=== PATIENT | male | born 1960 | race Caucasian/White ===

== ENCOUNTER → 2017-07-11 | Outpatient (CLI) | payer BC ==
[~2017-07-11] MED LIST: ALLOPURINOL 30300 M1 PO; ATENOLOL 100MG100 MG PO; BACTROBAN15 GM TOP; CARDURA XL4 MG PO; CARDURA4 MG PO; CIPRO500 MG PO; COLACE 100 MG100 MG PO; DULOXETINE HCL30 MG PO; ELMIRON 100 MG100 M1 PO; FLOMAX; GLUCOPHAGE500 MG PO; HUMALOG100 UNIT/1 SUBQ; HUMALOG100 UNIT/2 SQ; HYDROCODON-ACE1 EACH; HYOSCYAMIN125 MCG/5 PO; INDOMETHACIN 5050 M1; LANTUS SUBQ; LISINOPRIL-HCT1 EAC2 PO; MAXIPIME2 GM IV; METAMUCIL1 EAC1 PO; MOBIC15 MG; MOBIC15 MG PO; NORCO 5-325 TA1 EACH PO; PERCOCET 5-3251 EACH PO; PERCOCET PO; PREDNISONE 20 M20 MG PO; PYRIDIUM200 M1 PO; TOUJEO SOL300 UNIT/1 SQ; TOUJEO SOL300 UNIT/1 SUBQ; TYLENOL EXTRA500 MG PO
== END ==
LOC: M.WC 01:30
DX: N30.41 Irradiation cystitis with hematuria (principal); L59.9 Disorder of the skin and subcutaneous tissue related to radiation, unspecified; I10 Essential (primary) hypertension; E11.9 Type 2 diabetes mellitus without complications; M10.9 Gout, unspecified; G47.30 Sleep apnea, unspecified; M06.9 Rheumatoid arthritis, unspecified; F41.1 Generalized anxiety disorder; F33.1 Major depressive disorder, recurrent, moderate; Z79.4 Long term (current) use of insulin; Z87.891 Personal history of nicotine dependence; Z72.89 Other problems related to lifestyle; Z68.32 Body mass index [BMI] 32.0-32.9, adult; Z85.46 Personal history of malignant neoplasm of prostate

== ENCOUNTER → 2017-07-30 | Outpatient (CLI) | payer BC | LOC: M.WC 01:34 | DX: N30.41 Irradiation cystitis with hematuria (principal); L59.9 Disorder of the skin and subcutaneous tissue related to radiation, unspecified; E11.9 Type 2 diabetes mellitus without complications; I10 Essential (primary) hypertension; M10.9 Gout, unspecified; G47.30 Sleep apnea, unspecified; M06.9 Rheumatoid arthritis, unspecified; F33.1 Major depressive disorder, recurrent, moderate; F41.1 Generalized anxiety disorder; Z87.891 Personal history of nicotine dependence; Z68.32 Body mass index [BMI] 32.0-32.9, adult; Z85.46 Personal history of malignant neoplasm of prostate; Z72.89 Other problems related to lifestyle ==

== ENCOUNTER → 2017-07-31 | Outpatient (CLI) | payer BC | LOC: M.WC 11:00 | DX: L59.9 Disorder of the skin and subcutaneous tissue related to radiation, unspecified (principal); N30.41 Irradiation cystitis with hematuria; E11.65 Type 2 diabetes mellitus with hyperglycemia; F33.1 Major depressive disorder, recurrent, moderate; F41.1 Generalized anxiety disorder; I10 Essential (primary) hypertension; M06.9 Rheumatoid arthritis, unspecified; Z85.46 Personal history of malignant neoplasm of prostate; Z87.891 Personal history of nicotine dependence; Z68.32 Body mass index [BMI] 32.0-32.9, adult; Z72.89 Other problems related to lifestyle ==

== ENCOUNTER 2018-05-23 01:46 | Inpatient (IN) | payer BC ==
[~2018-05-23] VITALS: Ht 182.9 cm; Wt 117.9 kg
[~2018-05-23 01:46] MED LIST changes: -BACTROBAN15 GM TOP; -CARDURA XL4 MG PO; -COLACE 100 MG100 MG PO; -ELMIRON 100 MG100 M1 PO; -HUMALOG100 UNIT/1 SUBQ; -LANTUS SUBQ; -MAXIPIME2 GM IV; -METAMUCIL1 EAC1 PO; -MOBIC15 MG PO; -PERCOCET PO; -PREDNISONE 20 M20 MG PO; -TYLENOL EXTRA500 MG PO
[2018-05-23 01:51] VITALS: BP 191/89
[2018-05-23] MEDS ORDERED: ELMIRON 100 MG100 M1 PO (01:56)
[2018-05-23] MEDS ORDERED: NORCO 5-325 TA1 EACH PO (01:56)
[2018-05-23] MEDS ORDERED: MOBIC15 MG PO (01:57)
[2018-05-23] MEDS ORDERED: CARDURA XL4 MG PO (01:58)
[2018-05-23] MEDS ORDERED: PREDNISONE 20 M20 MG PO (01:58)
[2018-05-23 02:30] LABS: CALCIUM 8.9 mg/dL (8.5-10.1); CREATININE 0.9 mg/dL (0.6-1.3); POTASSIUM 3.9 mmol/L (3.5-5.1)
[2018-05-23 02:32] LABS: INR 1.1
[2018-05-23 02:35] LABS: ALBUMIN 3.7 g/dL (3.4-5.0); TOTAL BILIRUBIN 1.3 mg/dL (<0.1-1.0); TOTAL PROTEIN 8.1 g/dL (6.4-8.2)
[2018-05-23 02:46] LABS: URINE BILIRUBIN NEGATIVE (Negative); URINE BLOOD 1+ (Negative); URINE CLARITY CLEAR; URINE COLOR DARK YELLOW; URINE GLUCOSE-RANDOM 1+ (Negative); URINE KETONES 1+ (Negative); URINE LEUKOCYTES-REFLEX NEGATIVE (Negative); URINE NITRITE-REFLEX NEGATIVE (Negative); URINE PROTEIN 2+ (Negative); URINE UROBILINOGEN 0.2 E.U./dl (0.2-1.0)
[2018-05-23 03:02] LABS: BACTERIA-REFLEX >30 Many /HPF (None Seen); CASTS None Seen /LPF (None Seen); CRYSTALS None Seen /LPF (None Seen); MUCUS 4-6 Moderate strn/LPF (None Seen); SQUAMOUS 0-3 Few /LPF (0-3); URINE RBC 3-10 Few /HPF (0-2); URINE WBC-REFLEX 0-5 Rare /HPF (0-5)
[2018-05-23 03:18] LABS: HEMATOCRIT 37.1 % (42.0-52.0); HEMOGLOBIN 12.6 gm/dL (14.0-18.0); MCH 30.8 pg (26.0-34.0); MCV 90.7 fL (80.0-100.0); MPV 7.9 fl. (7.2-11.1); NUCLEATED RBCS 0 /100WBC; PLATELET COUNT* 168 thou/uL (150-400); RDW-CV 14.1 % (10.5-14.5); WBC 10.4 thou/uL (4.0-11.0)
[2018-05-23 04:33] LABS: ESR (SEDRATE) 61 mm/hr (0-20)
[2018-05-23 04:56] VITALS: BP 171/86
[2018-05-23 05:54] LABS: ABSOLUTE LYMPHOCYTES 0.4 thou/uL (0.8-5.3); ABSOLUTE MONOCYTES 0.8 thou/uL (0.0-1.2); ABSOLUTE NEUTROPHILS 9.2 thou/uL (1.6-8.1); ANISOCYTOSIS 1+; PLATELET ESTIMATE ADEQUATE; POIKILOCYTOSIS 1+
--- NOTE | 2018-05-23 06:00 | NUR ---
PATIENT ADMITTED TO ROOM 112 FROM ER AT APPROXIMATELY 0500. VSS ON RA. PATIENT ORIENTED TO ROOM AND POLICIES. ADMISSION ROUTINES IN PROGRESS. ASSESSMENT CHARTED. FALL EDUCATION GIVEN AND FALL AGREEMENT SIGNED. PATIENT VERBALIZED UNDERSTANDING. IV IN RIGHT AC-NS @ 130ML/HR. PATIENT INSTRUCTED TO USE CALL LIGHT WHEN NEEDING ASSISTANCE. HOURLY ROUNDS TO BE MADE. WILL CONTINUE WITH PLAN OF CARE AND NURISNG TO MONITOR.
[2018-05-23 07:50] VITALS: BP 182/94
[2018-05-23 16:00] VITALS: BP 156/81
--- NOTE | 2018-05-23 18:16 | NUR ---
PT ALERT AND ORIENTED X 4. PT NPO. DENIES NAUSEA. RECEIVED IV MORPHINE FOR PAIN CONTROL. PT BEDREST. USES URINAL. IVF INFUSING @ 130 MLS/HR. USES A CPAP FROM HOME. LEFT HIP ASPIRATION COMPLETED. HOURLY ROUNDS MAINTAINED. WILL USE CALL LIGHT FOR ASSISTANCE. CALL LIGHT WITHIN REACH. NURSNG TO CONTINUE TO MONITOR.
[2018-05-23 19:45] VITALS: BP 161/84
[2018-05-24 00:45] VITALS: BP 149/86
[2018-05-24 04:30] VITALS: BP 180/93
[2018-05-24 06:10] VITALS: BP 169/91
--- NOTE | 2018-05-24 07:34 | NUR ---
REMAINS ON BEDREST. STILL HAVING ALOT OF PAIN IN LEFT HIP. IV PAIN MEDICATION GIVEN AND HELPFUL. HAD ELEVATED TEMPATURE 101.6 AT BEGINNING OF SHIFT AND DR NOTIFIED. PO TYLENOL ORDERED AND HELPFUL WITH TEMPATURE. V/S THIS AM TEMATURE 102.9 PULSE 110 AND B/OOD PRESSURE 180/93. TYLENOL AND PAIN MEDICATION GIVEN AND THEN TEMPATURE RECHECKED 1 HOUR LATER AND 103.4 PULSE 111 AND BLOOD PRESSURE 169/91. BLOOD CULTURES POSITIVE. DR CALLED AGAIN AND NOTIFIED AND HAD NO NEW ORDERS. HE SAID TO CONTINUE CURRENT ORDERS. HAS 2 IV ANTIBIODICS HE IS RECEIVING WITH NO ADVERSE REACTIONS. CALL LIGHT WITHIN REACH. WILL CONTINUE TO MONITOR.
[2018-05-24 07:55] VITALS: BP 178/88
[2018-05-24 14:44] LABS: CLARITY CLOUDY; COLOR RED; SOURCE SYNOVIAL; TOTAL VOLUME 1 ml
[2018-05-24 14:46] LABS: BF RBC 1383345 /mm3
[2018-05-24 14:48] LABS: TOTAL CELL COUNT 27960 /mm3
[2018-05-24 14:51] LABS: BF EOSINOPHILS 2 %; BF LYMPHOCYTES 7 %; BF MONOCYTES 5 %; BF POLYS 86 %
--- NOTE | 2018-05-24 15:51 | NUR ---
PT ALERT AND ORIENTED X 4. RECEIVED IV MORPHINE FOR PAIN CONTROL. DENIES NAUSEA. USES CPAP FROM HOME. TEMP @ 99.8. SCDS IN PLACE. IVF INFUSING. PT ON BEDREST FOR LEFT HIP PAIN. HOURLY ROUNDS MAINTAINED. CALL LIGHT WITHIN REACH.
--- NOTE | 2018-05-24 16:01 | NUR ---
PT LEFT UNIT BY BED @ 0915 FOR PROCEDURE AND RETURNED @ 1245. PT ALERT AND ORIENTED X 4. OXYGEN ON @ 4L/NC. BEDSIDE MONITOR IN PLACE. IVF INFUSING @ 75 ML/HR. / GUAZE WITH TRANSPARENT DRESSING- C/D/I. HEMOVAC DRAIN IN PLACE TO LEFT HIP. CLEAN CATCH UA OBTAINED. RECEIVED 1000 VANCOMYCIN WHILE OFF UNIT. PT USES URINAL. DRIBBLES URINE. PT TURNED AND REPOSITIONED TO RIGHT. CALL LIGHT WITHIN REACH.
[2018-05-24 16:32] LABS: URINE BILIRUBIN NEGATIVE (Negative); URINE BLOOD 2+ (Negative); URINE CLARITY CLEAR; URINE COLOR YELLOW; URINE GLUCOSE-RANDOM NEGATIVE (Negative); URINE LEUKOCYTES-REFLEX NEGATIVE (Negative); URINE NITRITE-REFLEX NEGATIVE (Negative); URINE PROTEIN 2+ (Negative); URINE UROBILINOGEN 0.2 E.U./dl (0.2-1.0)
[2018-05-24 16:45] LABS: URINE KETONES 3+ (Negative)
[2018-05-24 17:31] LABS: SQUAMOUS 4-10 Moderate /LPF (0-3)
[2018-05-24 17:32] LABS: CRYSTALS None Seen /LPF (None Seen); HYALINE CASTS 0-3 Few /LPF (None Seen); MUCUS None Seen strn/LPF (None Seen); URINE RBC 0-2 Rare /HPF (0-2)
[2018-05-24 17:33] LABS: BACTERIA-REFLEX None Seen /HPF (None Seen); URINE WBC-REFLEX None Seen /HPF (0-5)
--- NOTE | 2018-05-24 17:33 | NUR ---
REPORT GIVEN. PT TRANSFER TO #[id number] BY BED @ 4224.
--- NOTE | 2018-05-24 18:25 | NUR ---
PT ARRIVED TO UNIT AT 1730 VIA BED AND RN/ICING MIXER FROM [facility]. A&O X4. SLIVER HANDLER IN PLACE, SR. O2 SAT >92% ON 4L/MIN NC. ISLAND DRSG TO L HIP SMALL AMT SEROSANGUINOUS DRNG ON [facility]. HEMOVAC DRAINING SANGUINOUS FLUID, PATENT. IN AGREEMENT WITH DOCUMENTED ASSESSMENT FROM [facility] RN. MEDS PER SEP. PRN PAIN MED PER SEP. CALL LIGHT IN REACH. ABLE TO COMMUNICATE NEEDS TO STAFF.
[2018-05-24 19:00] VITALS: BP 172/97
--- NOTE | 2018-05-24 22:15 | NUR ---
PT TRACING SR ON MONITOR. O2 SATS ADEQUATE ON 4LPM. PT DENIES PAIN, N/V/D. SMALL AMOUNT OF SEROUSSANGEOUS DRAINAGE TO DRESSING ON LEFT HIP. HEMOVAC IN PLACE. IVF AND IV ABT INFUSING ORDERED. PT IS COMPLIANT WITH FALL PRECAUTIONS AND IS USING CALL LIGHT APPROPRIATELY. CLWR.
[2018-05-25 00:04] VITALS: BP 164/89
[2018-05-25 04:57] LABS: HEMATOCRIT 30.2 % (42.0-52.0)
[2018-05-25 05:14] VITALS: BP 177/95
--- NOTE | 2018-05-25 05:20 | NUR ---
PT REMAINS SR ON MONITOR. PT HAS REQUIRED PRN MORPHINE ONE TIME WHEN MOVING ON AND OFF BED POSEY THIS CAUSED TREMENDOUS PAIN. VSS. NO OTHER CONCERNS AT THIS TIME.
[2018-05-25 06:49] LABS: HEMOGLOBIN 10.4 gm/dL (14.0-18.0)
--- NOTE | 2018-05-25 08:10 | NUR ---
REC'D REPORT FROM NOC RN, ASSUMED CARE OF PT APPROX 0730. A*O X4, ABLE TO COMMUNICATE NEEDS TO STAFF. SUPERVISORY CLERK IN PLACE, SR BBB. O2 SATS > 92% ON 2L/MIN NC. PT WEARING CPAP WHILE IN BED. VSS. CALL LIGHT WITHIN REACH.
[2018-05-25 08:15] VITALS: BP 156/90
--- NOTE | 2018-05-25 10:18 | EKG ---
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: : 1960 Requested By: Delfino Albright Order Number: [id number] Ksenia MD: Eleazar Chisholm Measurements Intervals [place] Rate: 99 P: 61 SD: 177 QRS: -17 QRSD: 106 T: 41 QT: 366 QTc: 470 Interpretive Statements Sinus rhythm Inferior infarct age indeterminate possible Borderline left axis deviation Compared to ECG 05/26/2013 07:21:23 No significant changes Electronically Signed On 05-25-2018 10:17:53 STEREOPTIC PROJECTION TOPOGRAPHER by Eleazar Chisholm [email or web address] <ELECTRONICALLY SIGNED> By: Eleazar Chisholm MD, [facility] 05/25/18 1017 5 5 Eleazar Chisholm MD, [facility] /EPI
[2018-05-25 12:00] VITALS: BP 155/83
[2018-05-25 16:52] VITALS: BP 146/83
--- NOTE | 2018-05-25 18:45 | NUR ---
UNIT CUSTOMER CARE VOICE CONSULTANT REPORTED TO THIS NURSE THAT PT HAD SMALL STOOL, DARK RED IN COLOR. WHEN PROVIDED NKECHI-CARE, SMALL AMOUNT OF BRIGHT RED BLOOD ON TISSUE.
[2018-05-25 19:15] VITALS: BP 160/87
--- NOTE | 2018-05-25 22:15 | NUR ---
PT ASSESSMENT COMPLETE AT START OF SHIFT. PT REPORTED 1/10 PAIN IN LEFT HIP AT TIME OF ASSESSMENT AND THEN SHORTLY AFTER REPORTED 4/10 PAIN , PRN PAIN MEDICATION GIVEN. IVF AND IV ABT INFUSING ORDERED. ZOSYN TO BE HUNG LATE D/T AFTERNOON DOSE BEING HUNG NEARLY 3 HOURS LATE. PT IS LAERT AND ORIENTED AND ABLE TO VOICE ALL NEEDS. TRACING SR ON MONITOR. PT DENIES ANY FURTHER NEEDS AT THIS TIME. CLWR.
[2018-05-26] VITALS (7 sets, daily range): BP systolic 116–199; BP diastolic 54–103
--- NOTE | 2018-05-26 01:41 | CON ---
[address] [address] CONSULTATION Name: FREDDY BECKHAM Room: [address] IN M.R.#: [id number] Admission: 05/23/18 Attend Phys: Darrell Loyola MD Discharge: Date of : 62 Report #: [id number] THIS REPORT FOR: //name// CC: Margarita Alegria MD HISTORY OF PRESENT ILLNESS: Freddy Beckham is a 58-year-old white male admitted to the ER on the fiber optics engineer hours of 05/23/2018 with extreme pain in his hip to the point where he was immobilized. The patient has chronic hip pain and has known degenerative joint disease. However, in the first part of this week he developed progressive pain to the point where he could hardly walk. On the morning of 05/22/2018, he went to [facility] by ambulance because of pain and immobility. They did a hip x-ray and diagnosed him with arthritis and discharged him with pain medicine and steroid. The patient got a ride back home. He entered the house with a wheelchair and was barely able to get into bed. After sleeping, he got up and realized he was in too much pain to get out of bed, to reach the urinal or to take care of himself. He called another ambulance and came in the evening of 05/22/2018 to [place] [facility]. In the ER here, a CAT scan was performed, which suggested possible septic arthritis. The CT scan was interpreted as showing a small effusion in the hip as well as some gas. The patient was admitted in the fiber optics engineer hours of 05/23/2018. A CT directed hip aspiration was performed. This was described as obtaining only about 0.25 mL of specimen, but it was bloody and purulent. Dr. Albright reports that the lab said they thought they saw gram-positive cocci in the specimen. The patient developed a high fever after this. It was elected to take the patient to surgery for washout of a septic chehalis left hip. Dr. Albright describes to me that at surgery the hip did not look infected. There was minimal amount of effusion. When he opened the joint, there was really no purulence and not even much inflammation. He did do a thorough washout and closed over a drain. Of note, when the patient recovered from anesthesia, he noted his hip pain was markedly improved. The laboratory on the final report of the Gram stain documented and many white cells but no organisms sen. The patient was empirically started on vancomycin and Zosyn. Infectious Disease consultation was requested to assist with further evaluation and treatment. PAST HISTORY: Significant for arthritis. The patient had a right knee replacement in 2016, but says he has been having so much pain in his lower extremity and in his hips that he really has not had much functional improvement. Other diagnoses include diabetes and hypertension. The patient notes he checks his sugars just a couple of times a month and does not follow his diet. He has gained 30 pounds in the last 6 months, which he attributes to poor diet and inability to exercise. Other diagnoses include prostate cancer treated with radiation, which has had deleterious effects on urination. He has [address] [place] [address] CONSULTATION Name: FREDDY BECKHAM Room: [address] IN M.R.#: [id number] Admission: 05/23/18 Attend Phys: Darrell Loyola MD Discharge: Date of : 62 Report #: [id number] had some blood clot problems in the bladder. He states he has been constipated ever since the prostate radiation. He had a past diagnosis of kidney stones. He has a diagnosis of degenerative disease of the spine ALLERGIES: The patient reports no drug allergies. FAMILY HISTORY: Noncontributory. SOCIAL HISTORY: The patient is . He lives by himself. 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 He does not use alcohol currently. He was never a smoker. REVIEW OF SYSTEMS: GENERAL: The patient has not been complaining of fevers, chills or sweats. He has had weakness and malaise, which he attributes to pain. HEENT: He denies any headache, sinus congestion, sore throat or trouble swallowing. CHEST: The patient denies cough, chest pain or shortness of breath. CARDIAC: The patient denies angina, syncope or palpitation. GASTROINTESTINAL: The patient denies nausea, vomiting or abdominal pain. He does tend to get constipated and uses a laxative tea. The patient has issues with urination. He has severe pain in his left hip. He describes the pain on the lateral hip where the gun would be holstered. He does not have medial or anterior pain. He has some pain in his low back on the left side. He has some pain in the right hip, but not as severe. He is not complaining of pain in his knees. He has never had any diabetic foot wound issues. PHYSICAL EXAMINATION: GENERAL: The patient was in the reclining chair, appeared comfortable, alert, oriented, pleasant and not in any distress. VITAL SIGNS: Show that the patient had a temperature of 101.9 in the Emergency Room. It went up to 103.1 yesterday morning. He has been afebrile for the last 24 hours. SKIN: Shows no rash, lesion or exanthem. ENT: Negative. MENTAL STATUS: Normal. HEART: Sounds normal. LUNGS: Clear. ABDOMEN: Belly is obese, soft and not tender. MUSCULOSKELETAL: The joints show normal upper extremities and knees. Well-healed surgical scar in the right knee is present. In the recliner chair, it was apparent the patient had a great deal of pain on flexing his hip. He could barely draw his knee up at all before he complained of pain. He had discomfort with abduction and adduction while in the chair. The hip itself had a post-surgical dressing, which was not removed. There was moderate amount of bloody drainage in the Hemovac system[place] [address] CONSULTATION Name: FREDDY BECKHAM Room: [address] IN [facility]#: [id number] Admission: 05/23/18 Attend Phys: Darrell Loyola MD Discharge: Date of : 62 Report #: [id number] unremarkable. LABORATORY STUDIES: The white count is 10.4, hemoglobin 12.6 and platelets 168,000. Electrolytes, BUN and creatinine were normal. Glucose was 224 and then 274. Liver function tests are normal. Lactate was normal. Inflammatory markers were markedly elevated with CRP of 237. Sedimentation rate of 61. The blood cultures x 3 were drawn on . The lab reports are 1/3 blood cultures is showing growth in the anaerobic bottle. Two follow up cultures were obtained on 05/24/2018 and they are so far both negative. The arthrocentesis fluid showed 1.38 million red cells and 28,000 white cells. The final report on the Gram stain is many white cells, many red cells and no organisms, although Dr. Albright was told on the that there were gram-positive cocci. The crystal analysis was negative. In summary, my patient who presents with acute on chronic hip pain. Radiology studies suggest a small effusion, but when tapped a minimal amount of fluid was obtained. It was mostly bloody, but did have a high white count. Cultures of this so far are no growth. At surgery, the hip did not appear to be infected with no fluid and really no inflammation. One out of five blood cultures are growing a gram-negative anaerobe. The CT scan also demonstrated a 23 x 19 x 36 mm psoas abscess on the left side, which was seen incidental through the CT of the hip. At this time, the patient seemed to have evidence of infection with fever, elevated sedimentation rate and CRP. Hip fluid which was at one point described as purulent and does have 28,000 white cells, although many red cells as well. I am not sure what to make out of the 1/5 blood cultures with anaerobic gram-negative. This may be significant, but these are sometimes just contaminants. We will await the final identification to see if any of other cultures are positive. At this point, I would like to do a MRI scan of the lumbar spine to look specifically at that iliopsoas abscess and see if there is any epidural or spinal disease, which might be explaining the patient's pain. We will continue the antibiotics while we await the results of this workup. I discussed with the patient if we feel this is a septic arthritis, he will need a PICC line in 4-6 weeks of IV antibiotics and joint replacement will be deferred for 6 months or longer. If the conclusion is this is all degenerative disease without infection, Dr. Albright says the severity of the arthritis would justify a joint replacement, which probably will give the patient excellent relief from his left hip pain. However, it will be important that we rule out infection. At this point in time, this is rather confusing. I want to check a [address] [address] CONSULTATION Name: FREDDY BECKHAM Room: [address] IN ..#: [id number] Admission: 05/23/18 Attend Phys: Darrell Loyola MD Discharge: Date of : 62 Report #: [id number] hemoglobin A1c and follow the CBC as well as inflammatory markers. Dr. Alegria will assume infectious disease coverage tomorrow morning. <ELECTRONICALLY SIGNED> By: Delfino Li MD 05/26/18 0141 1341 [id number] Li MD /nt
--- NOTE | 2018-05-26 05:45 | NUR ---
PT SLEPT WELL T/O THIS SHIFT. MINIMAL C/O PAIN. IVF AND IV ABT INFUSED ORDERED. NO NEW CONCERNS,
[2018-05-26 05:48] LABS: ABSOLUTE EOSINOPHILS 0.2 thou/uL (0.0-0.7); ABSOLUTE LYMPHOCYTES 0.7 thou/uL (0.8-5.3); ABSOLUTE MONOCYTES 0.8 thou/uL (0.0-1.2); ABSOLUTE NEUTROPHILS 4.2 thou/uL (1.6-8.1); BASOPHILS 0.2 %; EOSINOPHILS 2.7 %; HEMOGLOBIN 10.1 gm/dL (14.0-18.0); LYMPHOCYTES 11.7 %; MCH 30.6 pg (26.0-34.0); MCHC 33.8 g/dL (28.0-37.0); MCV 90.5 fL (80.0-100.0); MONOCYTES 14.2 %; MPV 7.4 fl. (7.2-11.1); NUCLEATED RBCS 0 /100WBC; PLATELET COUNT* 198 thou/uL (150-400); POLYS 71.2 %; RBC 3.31 mil/uL (4.50-6.00); RDW-CV 13.6 % (10.5-14.5); WBC 5.9 thou/uL (4.0-11.0)
[2018-05-26 06:11] LABS: ALBUMIN 2.4 g/dL (3.4-5.0); CALCIUM 7.9 mg/dL (8.5-10.1); CREATININE 0.7 mg/dL (0.6-1.3); POTASSIUM 3.6 mmol/L (3.5-5.1); TOTAL BILIRUBIN 0.5 mg/dL (<0.1-1.0); TOTAL PROTEIN 5.9 g/dL (6.4-8.2)
[2018-05-26 07:41] LABS: ESR (SEDRATE) 132 mm/hr (0-20)
--- NOTE | 2018-05-26 15:26 | NUR ---
MET WITH PT TO DISCUSS HOME SITUATION/DC PLANNING. PT LIVES ALONE IN HOUSE, NORMALLY IS INDEPENDENT, DRIVES, SHOPS, ETC. STATES HE IS CONCERNED ABOUT HOW HE'LL MANAGE AT HOME AND IS CONSIDERING GOING TO SNF. PT ALSO STATED THAT HE'S THOUGHT ABOUT MOVING TO SR HOUSING OR ASSISTED LIVING FOR ABOUT 2YRS NOW BUT UNSURE HOW TO MAKE IT 'HAPPEN.' PT HAS FAMILY IN [place] BUT IS NOT CLOSE TO THEM. HE HAS A COUSIN AND AN AQUAINTANCE [place] THAT [place] BE ABLE TO ASSIST HIM AT HOME. PT VERBALIZED THAT HE IS NOT 'TRUSTING' OF PEOPLE AND THAT HE HAS HAS DIFFICULTY WITH THAT ALL HIS LIFE. HE HAS A WALKER AND CANE AND CPAP. HE HAS HAD HH WITH [facility] IN THE PAST. DISCUSSED HOME WITH HH, SNF AND INDP VS ASSISTED LIVING. AT THIS TIME, PT IS AGREEABLE TO SNF, WILL PROVIDE LIST THRU INSURANCE. PT AWARE MAY HAVE SOME COPAYS. RHETT FOLLOW AND PROVIDE ADD'L INFO TOMORROW
--- NOTE | 2018-05-26 16:58 | NUR ---
VSS, ASSUMED CARE THIS AM, ASSESSMENT PERFORMED AND CHARTED, FALL PRECAUTIONS IN PLACE AND CALL LIGHT IN REACH, PT IS A&O4, UP WITH ONE AND WALKER, PN RA BUT USES C-PAP AT HS, PT IS TRACING SR ON THE MONITOR, STATES A SHARP PAIN IN HIS LEFT HIP WHEN MOVING, PT GOAL IS TO SIT UP IN CHAIR AND WORK WITH PT/OT, WILL FOLLOW WITH PLAN OF CAR AND HOURLY ROUNDS COMPLETED,
[2018-05-26 23:06] LABS: GLYCOHEMOGLOBIN (HGB A1C) 9.2 % (4.8-5.6)
[2018-05-27] VITALS (7 sets, daily range): BP systolic 128–186; BP diastolic 63–96
--- NOTE | 2018-05-27 01:41 | NUR ---
INITIAL ASSESSMENT COMPLETE. DRESSING TO LEFT HIP CHANGE, INCISION WELL APPROXIMATED, NO NEW DRAINAGE NOTED. PT UP TO BATHROOM WITH SBA AND WALKER. PT HAD A LARGE BM WITH SOME BLOOD NOTED. PT REPORTS [id number]. PT REPORTED 5/10 PAIN AT ASSESSMENT, PRN PERCOCET GIVEN WITH GOOD RESULTS. PT TOLERATED DRESSING CHANGE WELL. PT TRACING SR ON MONITOR. PT WAS NOTED TO HAVE ELEVATED B/P , NEW ORDERS RECEIVED FOR LISINOPRIL. PT DENIES ANY FURTHER NEEDS AT THIS TIME. CLWR.
--- NOTE | 2018-05-27 06:06 | NUR ---
PT HAD LOW GRADE FEVER T/O THE NIGHT. PT HAS ALSO HAD INCREASED B/P. SLEPT OFF AND ON T/O THIS SHIFT. LARGE BM NOTED.
[2018-05-27 06:11] LABS: CALCIUM 8.5 mg/dL (8.5-10.1); CREATININE 0.8 mg/dL (0.6-1.3); MAGNESIUM 1.7 mg/dL (1.8-2.4); POTASSIUM 3.2 mmol/L (3.5-5.1)
--- NOTE | 2018-05-27 12:00 | NUR ---
CONTINUE TO FOLLOW, MET WITH PT TO FURTHER DISCUSS DC PLAN AND SNF. GAVE LIST OF FACILITIES IN INSURANCE NETWORK. CHOSE EITHER [facility] OR [facility]. CALLED AND FAXED REFERRAL TO [facility]. PER DR GARCÍA, PT WILL NEED IV ANTIBX AT DC. ALSO GAVE INFO ON [facility]DP AND ASSISTED LIVING AND PRIVATE DUTY INFO. AWAIT CALL BACK FROM [facility].
--- NOTE | 2018-05-27 15:05 | NUR ---
VSS, ASSUMED CARE THIS AM, ASSESSMENT PERFORMED AND CHARTED, FALL PRECAUTIONS IN PLACE AND CALL LIGHT IN REACH, PT IS A&O4 UP WITH STAND BY AND WALKER, PT STATES PAIN IN HIS LEFT HIP. HIS GOAL IS TO WORK WITH PT/OT AND WALK IN ROOM, PT IS TRACING SR ON THE MONITOR, WILL FOLLOW WITH PLAN OF CARE AND HOURLY ROUNDS,
[2018-05-28] VITALS (7 sets, daily range): BP systolic 155–187; BP diastolic 80–100
--- NOTE | 2018-05-28 04:46 | NUR ---
PT. IS PROGRESSING TOWARDS GOALS. BP HIGH AT 0400 CHECK, PT. EXPRESSED HE WAS IN PAIN, PAIN MEDS GIVEN, WILL RECHECK BP. CPAP WORN THROUGHOUT THE EVENING. IVF REMAIN INFUSING. URINAL TO VOID, CALL LIGHT IN REACH, WILL CONTINUE TO MONITOR.
--- NOTE | 2018-05-28 04:59 | NUR ---
HOURLY ROUNDING COMPLETED THROUGHOUT SHIFT, REMAINS SINUS RHYTHM/TACHYCARDIC AT TIMES ON MONITOR
--- NOTE | 2018-05-28 13:44 | NUR ---
PER [facility], THEY ARE FULL AND CANNOT ACCEPT PT. HAD PREVIOUSLY DISCUSSED [facility]. CALLED AND FAXED REFERRAL TO [facility]. THEY CAN ACCEPT PT BUT HAVE TO GET AUTH. PT UPDATED
--- NOTE | 2018-05-28 18:38 | NUR ---
ASSUMED PT CARE AT 0700 PT IS ALERT AND ORIENTED X 4 PT C/O PAIN GAVE PAIN MEDS PT STATES THEY HELP DO NOT COMPLETELY RELIEVE PAIN, PT DENIES SOA, PT IS UP WITH ASSIST X 1 WITH WALKER PT IS STIFF AND HAS DIFFICULTY WITH AMBULATION, PT IS SR ON THE MONITOR PHYSICIAN MADE PT MEDICAL SURGICAL STATUS, PT MAY DISCHARGE TOMORROW TO [facility], TALKED WITH INFECTIOUS DISEASE WHO ORDERED PICC LINE PLACEMENT PT WILL DISCHARGE WITH IV ANTIBIOTICS PICC LINE IS APPROPRIATE NOTIFIED INFUSION NURSE WHO WILL PLAVE PICC LINE TOMORROW AM PT IS PROGRESSING TOWARDS GOALS, WILL CONTINUE TO MONTIOR
--- NOTE | 2018-05-28 22:00 | NUR ---
PT TRANSFERRED TO ROOM 307 PER CART ACCOMPANIED BY NURSING STAFF AND BELONGINGS. ORIENTED TO ROOM AND CALL LITE. WILL CONTINUE TO MONITOR AND PROVIDE CARES NEEDED, CALL LITE IN EASY REACH. BED ALARM ON FOR SAFETY AT THIS TIME.
[2018-05-29 03:53] LABS: HEMATOCRIT 28.6 % (42.0-52.0); MCH 30.7 pg (26.0-34.0); MCHC 34.7 g/dL (28.0-37.0); MCV 88.4 fL (80.0-100.0); RBC 3.24 mil/uL (4.50-6.00); RDW-CV 13.8 % (10.5-14.5)
[2018-05-29 04:16] LABS: CALCIUM 8.3 mg/dL (8.5-10.1); CREATININE 0.7 mg/dL (0.6-1.3); MAGNESIUM 1.9 mg/dL (1.8-2.4); POTASSIUM 3.6 mmol/L (3.5-5.1)
--- NOTE | 2018-05-29 06:25 | NUR ---
PT TRANSFER LAST NIGHT AT HS. HAS SLEPT FAIRLY WELL OVERNIGHT, RECEIVING PO PAIN MED X2 OVERNIGHT WITH GOOD RESULT. LFA IVF AND ABX GIVEN OVERNIGHT, IV OUT AT THIS TIME THIS MORNING. SCHEDULED FOR PICC PLACEMENT TODAY IN ORDER TO DC TO SNF FOR REHAB AND IV ABX. AM LABS DRAWN. L HIP DRSG CDI. L LEG REMAINS STIFF AND SORE AND PAINFUL TO MOVE. CPAP OVERNIGHT. ABLE TO USE CALL LITE AND MAKE NEEDS KNOWN.
[2018-05-29 08:25] VITALS: BP 177/105
--- NOTE | 2018-05-29 09:48 | CON ---
[address] [address] CONSULTATION Name: BHAVANIKORI MEG Room: [address] IN M.R.#: [id number] Admission: 05/23/18 Attend Phys: Darrell Loyola MD Discharge: Date of : 62 Report #: [id number] THIS REPORT FOR: //name// CC: Margarita Loyola HISTORY OF PRESENT ILLNESS: This 58-year-old male was admitted through the Emergency Room with severe pain of his left hip. He related that he was unable to move any whatsoever with his left hip. He relates that his left hip wants to spasm secondary to pain. He related that he developed severe pain of his left hip within the past 3 days. He was seen in the emergency room at [facility] the day prior to presenting to the Emergency Room here. He was x-rayed, given analgesics and discharged from [place]. When admitted here, he had a CT scan of his hip, which revealed some fluid accumulation, which was suspicious for possible septic hip. He was advised to become hospitalized for workup and definitive care. This patient has been followed by this examiner for the past several years with severe osteoarthritis of both hips. He was able to get along until recently with his hips until he began to experience an acute pain. FAMILY HISTORY: Reviewed and is recorded in his medical record. SOCIAL HISTORY: Reviewed and is recorded in his medical record. REVIEW OF SYSTEMS: Reviewed and is recorded in his medical record. PHYSICAL EXAMINATION: GENERAL: Today revealed a well-developed, well-nourished male who is alert, cooperative and well oriented x 3. EXTREMITIES: He was tender about the left hip. He complained of severe pain upon any rotational motion of his hip. He was also noted to have painful rotation of his right hip. RADIOLOGIC DATA: His CT scan was reviewed. He was noted to have loss of the joint space of both hips, worse on the left. Arthritic cyst formation was noted about the acetabulum as well as the femoral head. His lab studies were reviewed. He has no white count or shift to the left with his CBC. SUMMARY: It appears to this examiner that this patient suffers with severe osteoarthritis of the left hip. He will have an aspiration of his left hip by Interventional Radiology with the appropriate studies from the aspirate. If he has no evidence of an infectious process about his hip, he will then be scheduled for a left total hip replacement. If he has any evidence of an infection, he will require an I and [place] [address] CONSULTATION Name: KORI BECKHAM Room: [address] IN M.R.#: [id number] Admission: 05/23/18 Attend Phys: Darrell Loyola MD Discharge: Date of : 62 Report #: [id number] DIAGNOSIS: Severe osteoarthritis of the left hip with effusion, rule out septic arthritis of the left hip. <ELECTRONICALLY SIGNED> By: Delfino Albright MD 05/29/18 0948 [id number] [id number] Silvestre Albright MD /nt
--- NOTE | 2018-05-29 09:49 | OP ---
[facility] [address] [place] [address] OPERATIVE REPORT Name: BHAVANIKORI MEG Room: [address] IN M.R.#: [id number] Admission: 05/23/18 Attend Phys: Darrell Loyola MD Discharge: Date of : 62 Report #: [id number] THIS REPORT FOR: //name// CC: Margarita Loyola PREOPERATIVE DIAGNOSIS: Septic arthritis of the left hip. OPERATIVE PROCEDURES PERFORMED: Incision and drainage of left hip. REMARKS: This patient presented to the Emergency Room with intractable pain about his left hip. He had a CT scan performed of his left hip, which revealed severe osteoarthritis of the left hip with loss of the joint space. He was also noted to have a small hip joint effusion with a collection in the left iliopsoas muscle with associated free air at the level of the hip joint. This was suspicious for a possible septic joint. Interventional Radiology aspirated his left hip. Culture was obtained. A Gram stain was obtained. The Gram stain was reported as showing rare gram-positive cocci. The patient then ran a low-grade fever. It was felt that he should be taken to surgery for an I and D of his left hip. DESCRIPTION OF PROCEDURE: Under general endotracheal anesthesia, the patient was placed onto the operating room table on his right side. A routine prep and drape was performed of the left hip and leg. Following the appropriate timeout procedure, a 5 inch skin incision was made over the left hip. The incision was made in a posterolateral fashion. Incision was carried through the skin and subcutaneous tissue and fascia albina. The short external rotators were incised at the insertion on the greater trochanter. The capsule was opened, and a window was made in the capsule. Cultures and sensitivities were obtained. No ruben pus was encountered. He had a small effusion. There was not a large amount of effusion as would be expected with a septic joint. The joint was copiously irrigated. A Hemovac drain was placed. The wound was then closed with 1 Vicryl for the muscular and fascial layers. The subcutaneous tissue was closed with 2-0 Vicryl. The skin was closed with 3-0 nylon sutures. Sterile dressing was applied. The patient tolerated the procedure well and was returned to the recovery area in good condition. <ELECTRONICALLY SIGNED> By: Delfino Albright MD 05/29/18 0949 1150 [id number] Albright MD /jin
[2018-05-29] MEDS ORDERED: COLACE 100 MG100 MG PO (10:17)
[2018-05-29] MEDS ORDERED: PERCOCET PO (10:17)
--- NOTE | 2018-05-29 11:45 | NUR ---
ORDERS RECEIVED FOR DC TO SNF. PT TO GO TO [facility]. CALLED AND FAXED DC ORDERS TO [facility]. SHE SET UP W/C VAN FOR 330PM. CHART COPIED. AWAIT FINAL DC ORDERS FROM ID . PT GETTING PICC LINE AT THIS TIME RN HAS NUMBER TO CALL REPORT
--- NOTE | 2018-05-29 12:57 | NUR ---
RIGHT BASILIC VESSEL ACCESSED FOR SINGLE LUMEN PICC. LINE PRE-TRIMMED TO 46CM AND ADVANCED TO THE ZERO EMILY WITH NO RESISTANCE MET. UPPER ARM CIRDUMFERENCE ABOVE INSERTION SITE= 15 1/2". SHERLOCK MAGNET AND 3CG [id number] OF TIP TERMINATION AT THE CAVOATRIAL JUNCTION. INSERTION SITE DRESSED, STYLET REMOVED AND REPORT GIVEN TO AYAD UP.
[2018-05-29] MEDS ORDERED: HUMALOG100 UNIT/1 SUBQ (14:22)
[2018-05-29] MEDS ORDERED: METAMUCIL1 EAC1 PO (14:24)
[2018-05-29] MEDS ORDERED: BACTROBAN15 GM TOP (14:24)
[2018-05-29] MEDS ORDERED: TYLENOL EXTRA500 MG PO (14:25)
[2018-05-29] MEDS ORDERED: MAXIPIME2 GM IV (14:27)
[2018-05-29 14:44] VITALS: BP 177/105
[2018-05-29 15:00] VITALS: BP 192/87
[2018-05-29] MEDS ORDERED: LANTUS SUBQ (15:04)
[2018-05-29 17:00] VITALS: BP 112/79
--- NOTE | 2018-05-29 17:19 | NUR ---
REPORT CALLED AND GIVEN TO TIFFANIE AT [facility]. PATIENT'S BLOOD PRESSURE IMPROVED THIS AFTERNOON. PATIENT DISCHARGED WITH PICC LINE FOR IV ANTIBIOTICS. PATIENT ESCORTED OFF NURSING UNIT VIA WHEELCHAIR WITH NURSING STAFF AND TRANSPORT.
--- NOTE | 2018-06-01 15:43 | NUR ---
DE. SMITH NOTIFIED OF JOINT FLUID CULUTRE RESULTS, PATIENT WAS SENT TO SNF ON ABX THAT ARE NOTED TO NOT BE COVERED ACCORDING THE SENSISTIVITY. FAX SENT TO LAB TO ADD ON FOR SENSITIVITYS, WILL NOTIFY DR. GARCÍA ON ROUNDING IN AM.
--- NOTE | 2018-06-04 10:44 | NUR ---
SW contacted [facility] and faxed latest results so that ID and post acute facility will be able to adjust abx accordingly.
== END 2018-05-29 17:23 | DRG 854 ==
LOC: M.ERS 01:46 → M.TBA-ER 04:09 → M.ORTHSURG 04:09 → M.2W 05-24 17:23 → M.3W 05-28 22:04
PROVIDERS: Emergency Medicine; Family Medicine; Internal Medicine; Internal Medicine Infectious Disease; Specialist; ADMIT Internal Medicine
PROC: 0S9B3ZZ Drainage of Left Hip Joint, Percutaneous Approach (ICD-10-PCS; principal; 2018-05-23)
PROC: 0J9M0ZZ Drainage of Left Upper Leg Subcutaneous Tissue and Fascia, Open Approach (ICD-10-PCS; 2018-05-24)
PROC: 02HV33Z Insertion of Infusion Device into Superior Vena Cava, Percutaneous Approach (ICD-10-PCS; 2018-05-29)
DX: A41.9 Sepsis, unspecified organism (principal); M00.852 Arthritis due to other bacteria, left hip; I10 Essential (primary) hypertension; M25.452 Effusion, left hip; E11.9 Type 2 diabetes mellitus without complications; F41.9 Anxiety disorder, unspecified; K21.9 Gastro-esophageal reflux disease without esophagitis; Z87.442 Personal history of urinary calculi; Z85.46 Personal history of malignant neoplasm of prostate; Z79.4 Long term (current) use of insulin; Z79.899 Other long term (current) drug therapy; B96.5 Pseudomonas (aeruginosa) (mallei) (pseudomallei) as the cause of diseases classified elsewhere

== ENCOUNTER 2019-03-19 10:41 | Inpatient (IN) | payer MEDICARE ==
[2019-03-19] VITALS (21 sets, daily range): BP systolic 148–257; BP diastolic 73–152
[~2019-03-19] VITALS: Ht 182.9 cm; Wt 116.1 kg
[~2019-03-19 10:41] MED LIST changes: +BACTROBAN15 GM TOP; +CARDURA XL4 MG PO; +COLACE 100 MG100 MG PO; +ELMIRON 100 MG100 M1 PO; +HUMALOG100 UNIT/1 SUBQ; +LANTUS SUBQ; +MAXIPIME2 GM IV; +METAMUCIL1 EAC1 PO; +MOBIC15 MG PO; +PERCOCET PO; +PREDNISONE 20 M20 MG PO; +TYLENOL EXTRA500 MG PO
--- NOTE | 2019-03-19 10:45 | NUR ---
SEE CODE STROKE DOCUMENTATION FOR FURTHER INFORMATION.
[2019-03-19 11:01] LABS: ABSOLUTE BASOPHILS 0.1 thou/uL (0.0-0.2); ABSOLUTE EOSINOPHILS 0.4 thou/uL (0.0-0.7); ABSOLUTE LYMPHOCYTES 0.8 thou/uL (0.8-5.3); ABSOLUTE MONOCYTES 0.6 thou/uL (0.0-1.2); ABSOLUTE NEUTROPHILS 5.3 thou/uL (1.6-8.1); BASOPHILS 0.8 %; EOSINOPHILS 5.9 %; HEMATOCRIT 38.3 % (42.0-52.0); HEMOGLOBIN 13.6 gm/dL (14.0-18.0); LYMPHOCYTES 11.5 %; MCH 30.6 pg (26.0-34.0); MCHC 35.5 g/dL (28.0-37.0); MCV 86.3 fL (80.0-100.0); MONOCYTES 8.8 %; MPV 7.4 fl. (7.2-11.1); NUCLEATED RBCS 0 /100WBC; PLATELET COUNT* 199 thou/uL (150-400); RBC 4.44 mil/uL (4.50-6.00); RDW-CV 14.9 % (10.5-14.5); WBC 7.2 thou/uL (4.0-11.0)
[2019-03-19 11:05] LABS: ANION GAP 12 mmol/L (7-16); BUN 16 mg/dL (7-18); CALCIUM 8.9 mg/dL (8.5-10.1); CHLORIDE 102 mmol/L (98-107); CO2 26 mmol/L (21-32); CREATININE 0.9 mg/dL (0.6-1.3); GLUCOSE 266 mg/dL (70-99); POTASSIUM 3.9 mmol/L (3.5-5.1); SODIUM 140 mmol/L (136-145)
[2019-03-19 11:08] LABS: PROTIME 10.2 Seconds (9.20-11.50)
[2019-03-19 11:15] LABS: ALBUMIN 4.2 g/dL (3.4-5.0); ALKALINE PHOSPHATASE 81 U/L (46-116); SGOT 19 U/L (15-37); SGPT 31 U/L (30-65); TOTAL BILIRUBIN 0.6 mg/dL (<0.1-1.0); TOTAL PROTEIN 8.1 g/dL (6.4-8.2); TROPONIN-I LEVEL <0.06 ng/mL (<0.06)
[2019-03-19] MEDS ORDERED: LISINOPRIL40 MG PO (11:18)
--- NOTE | 2019-03-19 15:32 | NUR ---
PATIENT ADMITTED FROM ER DENIES PAIN OR SOA. SLIGHT FACIAL DROOP NOTED ABLE TO TAKE SIPS H2O WITHOUT DISTRESS. HAS TO STAND TO VOID DUE TO PROSTATE ISSUES.
--- NOTE | 2019-03-19 16:40 | 2DMMODE ---
[place] [address] 2 D/M-MODE ECHOCARDIOGRAM Name: BHAVANIKORI PEARLDE Room: [address] [place] IN [facility]#: [id number] Admission: 03/19/19 Attend Phys: Lucio Larson, Discharge: Date of : 62 Date of Service: 03/19/19 [facility] Report #: [id number] THIS REPORT FOR: //name// APPROVED REPORT Study performed: 03/19/2019 15:18:42 EXAM: Comprehensive 2D, Doppler, and color-flow Echocardiogram Patient Location: In-Patient Room #: 006 Status: routine BSA: 2.39 HR: 59 bpm BP: 165/89 mmHg Rhythm: NSR Other Information Study Quality: Good Indications CVA/TIA Echo Enhancing Agent Indication: Rule out Shunt Agent(s) / Amount(s) Used: Agitated Saline 10 cc 2D Dimensions IVSd: 16.12 (7-11mm) LVOT Diam: 23.55 (18-24mm) LVDd: 53.54 mm PWd: 13.40 (7-11mm) Ascending Ao: 40.80 (22-36mm) LVDs: 37.05 (25-40mm) Aortic Root: 41.69 mm Volumes Left Atrial Volume (Systole) LA ESV Index: 32.50 mL/m2 Aortic Valve AoV Peak Randy.: 1.46 m/s AO Peak Gr.: 8.53 mmHg LVOT Max P.08 mmHg AO Mean Gr.: 4.32 mmHg LVOT Mean P.84 mmHg LVOT Max V: 1.01 m/s AO V2 VTI: 23.93 cm LVOT Mean V: 0.61 m/s NBA (VTI): 3.68 cm2 LVOT V1 VTI: 20.21 [place] [address] 2 D/M-MODE ECHOCARDIOGRAM Name: KORI BECKHAM Room: [address] IN ..#: [id number] Admission: 03/19/19 Attend Phys: Lucio Larson, Discharge: Date of : 62 Date of Service: 03/19/19 [facility] Report #: [id number] Mitral Valve E/A Ratio: 0.66 MV Decel. Time: 277.17 ms MV E Max Randy.: 0.54 m/s MV PHT: 80.38 ms MVA (PHT): 2.74 cm2 TDI E/Lateral E': 6.75 E/Medial E': 6.75 Medial E' Randy.: 0.08 m/s Lateral E' Randy.: 0.08 m/s Pulmonary Valve PV Peak Randy.: 1.23 m/s PV Peak Gr.: 6.01 mmHg Left Ventricle The left ventricle is normal size. There is normal LV segmental wall motion. Mild concentric left ventricular hypertrophy. Left ventricular systolic function is normal. The left ventricular ejection fraction is within the normal range. LVEF is 55%. Grade I - abnormal relaxation pattern. Right Ventricle The right ventricle is normal size. The right ventricular systolic function is normal. Atria The left atrium size is normal. Interatrial septum is intact without evidence of ASD or PFO. The right atrium size is normal. Aortic Valve Aortic valve leaflets are mildly thickened. No aortic regurgitation is present. There is no aortic valvular stenosis. Mitral Valve The mitral valve is normal in structure. Mild mitral regurgitation. No evidence of mitral valve stenosis. Tricuspid Valve The tricuspid valve is normal in structure. Trace tricuspid regurgitation. Unable to assess PA pressure. Pulmonic Valve The pulmonary valve is normal in structure. [place] [address] 2 D/M-MODE ECHOCARDIOGRAM Name: KORI BECKHAM Room: [address] IN ..#: [id number] Admission: 03/19/19 Attend Phys: Lucio Larson, Discharge: Date of : 62 Date of Service: 03/19/19 1640 Report #: [id number] Great Vessels The aortic root is normal in size. IVC is normal in size and collapses >50% with inspiration. Pericardium There is no pericardial effusion. <Conclusion> The left ventricle is normal size. Mild concentric left ventricular hypertrophy. Left ventricular systolic function is normal. The left ventricular ejection fraction is within the normal range. LVEF is 55%. Grade I - abnormal relaxation pattern. The right ventricle is normal size. The left atrium size is normal. Aortic valve leaflets are mildly thickened. No aortic regurgitation is present. There is no aortic valvular stenosis. The mitral valve is normal in structure. Mild mitral regurgitation. The tricuspid valve is normal in structure. IVC is normal in size and collapses >50% with inspiration. There is no pericardial effusion. There is normal LV segmental wall motion. Interatrial septum is intact without evidence of ASD or PFO. <ELECTRONICALLY SIGNED> By: Delfino Llanos MD, FACC 03/19/19 1640 1640 1640 Delfino Llanos MD, FACC /INF
--- NOTE | 2019-03-19 16:45 | EKG ---
[place] [address] ELECTROCARDIOGRAM REPORT Name: KORI BECKHAM Room: [address] ADM IN M.R.#: [id number] Admission: 03/19/19 Attend Phys: Lucio Larson MD Discharge: Date of : 62 Report #: [id number] THIS REPORT FOR: //name// [facility] ED Test Date: 2019-03-19 Test Time: 10:47:02 Pat Name: KORI BECKHAM Department: Room: [facility] Gender: M Verification Rep: : 1960 Requested By: Varinder Kaufman Order Number: [id number] MD: Delfino Llanos Measurements Intervals [place] Rate: 76 P: -11 DE: 62 QRS: -19 QRSD: 110 T: 43 QT: 399 QTc: 449 Interpretive Statements Sinus rhythm Short DE interval Incomplete left bundle branch block Baseline wander in lead(s) V1 Compared to ECG 05/24/2018 07:46:57 Short DE interval now present Left bundle-branch block now present Myocardial infarct finding no longer present Electronically Signed On 03-19-2019 16:45:27 CDT by Delfino Llanos [email or web address] <ELECTRONICALLY SIGNED> By: Delfino Llanos MD, [facility] 03/19/19 1645 1047 1047 Delfino Llanos MD, [facility] /EPI
--- NOTE | 2019-03-19 18:13 | NUR ---
PATIENT TRANSFERED TO TELE STATUS. CO HEADACHE TYLENOL GIVEN. TAKING PO WELL. CARDINE GTT DCD MRI DONE.
[2019-03-20] VITALS (21 sets, daily range): BP systolic 151–205; BP diastolic 77–122
[2019-03-20 02:48] LABS: CHOLESTEROL 137 mg/dL (<200); HDL CHOLESTEROL 33 mg/dL (>40); LDL CHOLESTEROL 49 mg/dL (<100); TC:HDL 4.2 Ratio (Not establshd); TRIGLYCERIDE 275 mg/dL (<150); VLDL 55 mg/dL (<40)
[2019-03-20 02:49] LABS: SERUM ASSESSMENT Slight Lipemia
[2019-03-20 05:11] LABS: GLYCOHEMOGLOBIN (HGB A1C) 8.2 % (4.8-5.6)
--- NOTE | 2019-03-20 06:47 | NUR ---
ASSESSMENT CHARTED. PATIENT C/O HEADACHE DURING SHIFT. BP ELEVATED THROUGHOUT NIGHT. ADMINISTERED BP MEDICATION PER ORDERS. PATIENT STILL HYPERTENSIVE, BUT STABLE. PATIENT SHOWS NO FURTHER SIGNS OR SYMPTOMS OF CVA. PAIN CONTROLLED WITH BP CONTROL AND TYLENOL. PATIENT SLEPT MOST OF THE NIGHT WITH HOME TRILOGY SYSTEM IN PLACE. AMBULATING TO COMMODE. PRODUCING URINE AND HAVING BOWEL MOVEMENTS. NO OTHER CONCERNS AT THIS TIME. WILL CONTINUE TO MONITOR.
[2019-03-20] MEDS ORDERED: ASPIRIN EC325 M1 PO (08:13)
[2019-03-20] MEDS ORDERED: ASA81BEC PO (08:14)
[2019-03-20] MEDS ORDERED: PREDNISONE 10 M10 MG PO (08:31)
[2019-03-20] MEDS ORDERED: PROTONIX40 M1 PO (08:32)
[2019-03-20] MEDS ORDERED: AMLODIPINE BESY10 MG PO ×2 (08:33→08:34)
[2019-03-20] MEDS ORDERED: ATENOLOL 100MG100 MG PO (09:08)
--- NOTE | 2019-03-20 09:54 | NUR ---
THIS BANK OFFICER ASSUMED CARE OF PT AT 0700. THIS PT PROGRESSED TOWARD GOALS AND IS READY FOR DISCHARGE PER DAVID. PT RECEIVED MORNING MEDICATION AND BREAKFAST. HE SPOKE WITH THE DOCTOR REGARDING ANY QUESTIONS OR CONCERNS. REMOVED IVS, PROVIDED EDUCATION ON MEDICATION, CARB DIET, DIABETES, STROKE/ BELLS PALSEY. PT HAS A FOLLOW UP APT IN ONE WEEK WITH PRIMARY CARE DOCTOR. PT WAS DISCHARGED AT 0957
--- NOTE | 2019-03-20 10:37 | NUR ---
PATIENT DISCHARGED BEFORE CASE MANAGEMENT ASSESSMENT COULD BE COMPLETED
--- NOTE | 2019-03-20 17:34 | NUR ---
PT. DISCHARGED PRIOR TO O.T. EVAL. PLEASE ORDER FURTHER O.T. SERVICES IF NEEDED.
== END 2019-03-20 10:01 | disposition home or self-care (01) | DRG 74 ==
LOC: M.ERS 10:41 → M.TBA-ER 11:52 → M.ERS 11:52 → M.TBA-ER 12:02 → M.ICU 12:02
PROVIDERS: Emergency Medicine Emergency Medical Services; ADMIT Internal Medicine
DX: G51.0 Bell's palsy (principal); I16.1 Hypertensive emergency; I10 Essential (primary) hypertension; E11.9 Type 2 diabetes mellitus without complications; K21.9 Gastro-esophageal reflux disease without esophagitis; Z96.659 Presence of unspecified artificial knee joint; Z87.442 Personal history of urinary calculi; Z85.46 Personal history of malignant neoplasm of prostate; Z79.899 Other long term (current) drug therapy

== ENCOUNTER 2019-12-28 03:19 | Emergency (ER) | payer MEDICARE ==
[~2019-12-28] VITALS: Ht 180.3 cm; Wt 117.9 kg
[~2019-12-28 03:19] MED LIST changes: +AMLODIPINE BESY10 MG PO; +ASA81BEC PO; +ASPIRIN EC325 M1 PO; +LISINOPRIL40 MG PO; +PREDNISONE 10 M10 MG PO; +PROTONIX40 M1 PO
[2019-12-28] MEDS ORDERED: OXYCODON-ACETA1 EAC1 PO (05:13)
[2019-12-28] MEDS ORDERED: FLEXERIL PO ×2 (05:13→05:14)
[2019-12-28 05:55] LABS: ABSOLUTE BASOPHILS 0.1 thou/uL (0.0-0.2); ABSOLUTE EOSINOPHILS 0.2 thou/uL (0.0-0.7); ABSOLUTE MONOCYTES 0.8 thou/uL (0.0-1.2); ABSOLUTE NEUTROPHILS 8.6 thou/uL (1.6-8.1); BASOPHILS 0.6 %; EOSINOPHILS 2.2 %; HEMATOCRIT 36.2 % (42.0-52.0); HEMOGLOBIN 12.9 gm/dL (14.0-18.0); LYMPHOCYTES 9.4 %; MCH 30.5 pg (26.0-34.0); MCHC 35.7 g/dL (28.0-37.0); MCV 85.4 fL (80.0-100.0); MONOCYTES 7.2 %; MPV 7.1 fl. (7.2-11.1); NUCLEATED RBCS 0 /100WBC; PLATELET COUNT* 202 thou/uL (150-400); POLYS 80.6 %; RBC 4.24 mil/uL (4.50-6.00); RDW-CV 14.9 % (10.5-14.5); WBC 10.7 thou/uL (4.0-11.0)
[2019-12-28 06:08] LABS: CALCIUM 9.3 mg/dL (8.5-10.1); CREATININE 1.1 mg/dL (0.6-1.3); POTASSIUM 3.4 mmol/L (3.5-5.1)
[2019-12-28 06:20] LABS: ALBUMIN 3.9 g/dL (3.4-5.0); TOTAL BILIRUBIN 0.5 mg/dL (<0.1-1.0)
[2019-12-28 06:45] VITALS: BP 147/81
== END 2019-12-28 06:45 | disposition short-term general hospital (02) ==
LOC: M.ERS 03:19
PROVIDERS: Emergency Medicine
DX: M48.061 Spinal stenosis, lumbar region without neurogenic claudication (principal); M54.5 Low back pain; I10 Essential (primary) hypertension; E11.9 Type 2 diabetes mellitus without complications; K21.9 Gastro-esophageal reflux disease without esophagitis; Z79.82 Long term (current) use of aspirin; Z79.4 Long term (current) use of insulin; Z79.899 Other long term (current) drug therapy; Z96.643 Presence of artificial hip joint, bilateral; Z96.659 Presence of unspecified artificial knee joint; Z79.84 Long term (current) use of oral hypoglycemic drugs; Z87.442 Personal history of urinary calculi

== ENCOUNTER 2020-03-11 18:12 | Emergency (ER) | payer MEDICARE ==
[~2020-03-11] VITALS: Ht 180.3 cm; Wt 139.3 kg
[~2020-03-11 18:12] MED LIST changes: +FLEXERIL PO; +OXYCODON-ACETA1 EAC1 PO
[2020-03-11 18:51] LABS: ABSOLUTE BASOPHILS 0.1 thou/uL (0.0-0.2); ABSOLUTE EOSINOPHILS 0.4 thou/uL (0.0-0.7); ABSOLUTE LYMPHOCYTES 0.9 thou/uL (0.8-5.3); ABSOLUTE MONOCYTES 0.6 thou/uL (0.0-1.2); ABSOLUTE NEUTROPHILS 6.3 thou/uL (1.6-8.1); BASOPHILS 0.7 %; EOSINOPHILS 4.3 %; HEMATOCRIT 34.6 % (42.0-52.0); HEMOGLOBIN 12.6 gm/dL (14.0-18.0); LYMPHOCYTES 11.2 %; MCH 32.3 pg (26.0-34.0); MCHC 36.6 g/dL (28.0-37.0); MCV 88.4 fL (80.0-100.0); MONOCYTES 7.1 %; MPV 7.1 fl. (7.2-11.1); NUCLEATED RBCS 0 /100WBC; PLATELET COUNT* 213 thou/uL (150-400); POLYS 76.7 %; RBC 3.91 mil/uL (4.50-6.00); WBC 8.2 thou/uL (4.0-11.0)
[2020-03-11 18:56] LABS: APTT 26.8 Seconds (25.0-31.3); PROTIME 10.4 Seconds (9.20-11.50)
[2020-03-11 19:00] LABS: CALCIUM 8.4 mg/dL (8.5-10.1); CREATININE 1.3 mg/dL (0.6-1.3); POTASSIUM 3.7 mmol/L (3.5-5.1)
[2020-03-11 19:05] LABS: ALBUMIN 3.9 g/dL (3.4-5.0); TOTAL BILIRUBIN 0.6 mg/dL (<0.1-1.0); TOTAL PROTEIN 7.7 g/dL (6.4-8.2)
[2020-03-11 19:48] LABS: URINE BILIRUBIN NEGATIVE (Negative); URINE BLOOD NEGATIVE (Negative); URINE CLARITY CLEAR; URINE COLOR YELLOW; URINE GLUCOSE-RANDOM NEGATIVE (Negative); URINE KETONES NEGATIVE (Negative); URINE LEUKOCYTES-REFLEX NEGATIVE (Negative); URINE NITRITE-REFLEX NEGATIVE (Negative); URINE PROTEIN NEGATIVE (Negative); URINE UROBILINOGEN 0.2 E.U./dl (0.2-1.0)
[2020-03-11] MEDS ORDERED: HYDROXYZINE HCL25 M2 PO (19:53)
[2020-03-11 20:25] VITALS: BP 144/75
--- NOTE | 2020-03-13 13:57 | EKG ---
[place] [address] ELECTROCARDIOGRAM REPORT Name: KORI BECKHAM Room: [facility]#: [id number] Admission: 03/11/20 Attend Phys: Discharge: 03/11/20 Date of : 62 Date of Service: 03/11/20 183 Report #: [id number] THIS REPORT FOR: //name// [facility] ED Test Date: 2020-03-11 Test Time: 18:38:16 Pat Name: KORI BECKHAM Department: Room: Gender: Sheet Combining Operator: : 1960 Requested By: Teresita Abad Order Number: [id number] MD: Eleazar Chisholm Measurements Intervals [place] Rate: 75 P: 51 [place]: 205 QRS: -27 QRSD: 111 T: 47 QT: 393 QTc: 439 Interpretive Statements Sinus rhythm Incomplete left bundle branch block Compared to ECG 03/19/2019 10:47:02 Short [place] interval no longer present Electronically Signed On 03-13-2020 13:57:31 CDT by Eleazar Chisholm [email or web address] <ELECTRONICALLY SIGNED> By: Eleazar Chisholm MD, FACC 03/13/20 1357 1838 1838 Eleazar Chisholm MD, FAC /EPI
== END 2020-03-11 20:25 | disposition home or self-care (01) ==
LOC: M.ERS 18:12
PROVIDERS: Nurse Practitioner Family
DX: R53.1 Weakness (principal); F41.9 Anxiety disorder, unspecified; R06.00 Dyspnea, unspecified; Z20.828 Contact with and (suspected) exposure to other viral communicable diseases; I10 Essential (primary) hypertension; E11.9 Type 2 diabetes mellitus without complications; K21.9 Gastro-esophageal reflux disease without esophagitis; Z87.442 Personal history of urinary calculi; Z90.89 Acquired absence of other organs; Z96.643 Presence of artificial hip joint, bilateral; Z96.659 Presence of unspecified artificial knee joint; Z85.46 Personal history of malignant neoplasm of prostate